=== PATIENT | female | born 1990 | race Caucasian/White ===

== ENCOUNTER 2017-10-02 20:58 | Emergency (ER) | payer SELFPAY ==
[~2017-10-02] VITALS: Ht 157.5 cm; Wt 100.5 kg
[~2017-10-02 20:58] MED LIST: NOHOMEMEDS
[2017-10-03] MEDS ORDERED: PROAIR HFA8.5 GM IH (01:13)
[2017-10-03] MEDS ORDERED: ROBITUSSIN AC,T10 ML PO (01:13)
[2017-10-03 02:02] VITALS: BP 129/98
== END 2017-10-03 02:36 | disposition home or self-care (01) ==
LOC: EME 20:58
DX: J11.1 Influenza due to unidentified influenza virus with other respiratory manifestations (principal); J45.909 Unspecified asthma, uncomplicated
CPT/HCPCS: 87502; 99281; 99284

== ENCOUNTER 2017-11-24 14:09 | Inpatient (IN) | payer OTHER ==
[~2017-11-24] VITALS: Ht 158.8 cm; Wt 103.6 kg
[~2017-11-24 14:09] MED LIST changes: +PROAIR HFA8.5 GM IH; +ROBITUSSIN AC,T10 ML PO
[2017-11-24 17:15] VITALS: BP 121/58
[2017-11-24] MEDS ORDERED: TYLENOL REGULA325 MG PO (19:14)
[2017-11-24] MEDS ORDERED: VALIUM5 MG PO (19:15)
[2017-11-24] MEDS ORDERED: KLONOPIN0.5 M1 PO (19:15)
[2017-11-24] MEDS ORDERED: BENADRYL25 MG PO (19:17)
[2017-11-24] MEDS ORDERED: COLACE100 MG PO (19:17)
[2017-11-24] MEDS ORDERED: LOVENOX40 MG/0.4 SC (19:18)
[2017-11-24] MEDS ORDERED: PEPCID20 MG PO (19:18)
[2017-11-24] MEDS ORDERED: LATUDA60 MG PO (19:19)
[2017-11-24] MEDS ORDERED: OXYCODONE HCL10 MG PO ×2 (19:21→19:22)
[2017-11-24] MEDS ORDERED: ROXICODONE5 MG PO (19:21)
[2017-11-24] MEDS ORDERED: MIRALAX17 GM PO (19:22)
[2017-11-25 00:19] VITALS: BP 135/59
[2017-11-25 05:15] VITALS: BP 117/56
[2017-11-25 07:24] LABS: HEMATOCRIT 34.8 % (36.0-46.0); HEMOGLOBIN 11.6 G/DL (11.9-15.5); MCH 29.7 PG (29.0-34.0); MCHC 33.3 G/DL (30.0-36.0); PLATELET COUNT 325 K/uL (156-360); RBC DIS.WIDTH-CV 12.2 % (11.8-14.6); RBC DIS.WIDTH-SD 39.5 % (39-53); RED BLOOD COUNT 3.91 M/uL (3.80-5.20); WHITE BLOOD COUNT 7.1 K/uL (4.1-10.2)
[2017-11-25 07:41] LABS: ALBUMIN 3.6 G/DL (3.2-4.8); ALKALINE PHOSPHATASE 79 IU/L (3-129); ALT (GPT) 65 IU/L (3-49); AST (GOT) 30 IU/L (2-34); CHLORIDE 103 MEQ/L (99-109); CREATININE 0.9 MG/DL (0.6-1.3); GFR ESTIMATE (CALCULATED) > 59 mL/min/; GLUCOSE 103 mg/dL (70-99); POTASSIUM 4.5 MEQ/L (3.7-5.4); SODIUM 135 MEQ/L (136-147); TOTAL BILIRUBIN 0.3 MG/DL (0.0-1.0); TOTAL PROTEIN 6.2 G/DL (6.4-8.3); UREA NITROGEN (BUN) 11 mg/dL (9-23)
[2017-11-25 07:42] VITALS: BP 109/66
[2017-11-25 15:32] VITALS: BP 124/60
[2017-11-26 06:09] VITALS: BP 136/82
[2017-11-26 07:34] LABS: HEMATOCRIT 33.3 % (36.0-46.0); HEMOGLOBIN 11.2 G/DL (11.9-15.5); MCHC 33.6 G/DL (30.0-36.0); MCV 89.3 FL (83-99); NRBC (%) 0.5 /100 WBC (0-0); PLATELET COUNT 331 K/uL (156-360); RBC DIS.WIDTH-CV 12.2 % (11.8-14.6); RBC DIS.WIDTH-SD 38.8 % (39-53); RED BLOOD COUNT 3.73 M/uL (3.80-5.20); WHITE BLOOD COUNT 6.2 K/uL (4.1-10.2)
[2017-11-26 07:56] LABS: CHLORIDE 107 MEQ/L (99-109); CREATININE 0.8 MG/DL (0.6-1.3); GFR ESTIMATE (CALCULATED) > 59 mL/min/; GLUCOSE 98 mg/dL (70-99); POTASSIUM 4.6 MEQ/L (3.7-5.4); SODIUM 137 MEQ/L (136-147); UREA NITROGEN (BUN) 10 mg/dL (9-23)
[2017-11-26 11:43] LABS: APPEARANCE SL.HAZY ((CLEAR)); BILIRUBIN NEGATIVE; BLOOD NEGATIVE; COLOR YELLOW ((YELLOW)); GLUCOSE (STRIP) NEGATIVE; KETONES NEGATIVE; LEUKOCYTES SMALL; NITRITE NEGATIVE; PROTEIN (STRIP) NEGATIVE; SPECIFIC GRAVITY 1.008 (1.000-1.030); UROBILINOGEN 0.2 MG/DL (0.2-1.0)
[2017-11-26 11:48] LABS: BACTERIA 1+ /HPF; EPITHELIAL CELLS 1+ /HPF; MUCUS TRACE /LPF; RED BLOOD CELLS 0-5 /HPF (0-5); WHITE BLOOD CELLS 15-20 /HPF (0-5)
[2017-11-27 05:40] VITALS: BP 112/58
[2017-11-27 15:22] VITALS: BP 110/56
[2017-11-28 05:54] VITALS: BP 114/59
[2017-11-28 15:35] VITALS: BP 146/80
[2017-11-29 05:52] VITALS: BP 118/77
[2017-11-29 15:09] VITALS: BP 119/84
[2017-11-30 05:38] VITALS: BP 100/50
[2017-11-30 15:08] VITALS: BP 130/71
[2017-12-01 05:58] VITALS: BP 106/56
[2017-12-01 06:56] VITALS: BP 88/50
[2017-12-01 16:20] LABS: BASOPHIL (%) 0.6 % (0-1); BASOPHIL COUNT 0.1 K/uL (0-0.1); EOSINOPHIL (%) 1.2 % (0-5); EOSINOPHIL COUNT 0.1 K/uL (0-0.3); HEMATOCRIT 32.4 % (36.0-46.0); HEMOGLOBIN 10.6 G/DL (11.9-15.5); IMMATURE GRANULOCYTE (%) 0.6 % (0.0-0.7); LYMPHOCYTE (%) 22.5 % (15-42); MCH 29.4 PG (29.0-34.0); MCHC 32.7 G/DL (30.0-36.0); MCV 89.8 FL (83-99); MONOCYTE (%) 6.8 % (3-12); MONOCYTE COUNT 0.6 K/uL (0-0.8); NEUTROPHIL (%) 68.3 % (45-76); NEUTROPHIL COUNT 6.1 K/uL (1.8-6.4); PLATELET COUNT 326 K/uL (156-360); RBC DIS.WIDTH-CV 12.4 % (11.8-14.6); RED BLOOD COUNT 3.61 M/uL (3.80-5.20)
[2017-12-01 16:32] VITALS: BP 120/55
[2017-12-02 05:52] VITALS: BP 136/60
[2017-12-02 11:15] LABS: ALBUMIN 3.8 G/DL (3.2-4.8); ALKALINE PHOSPHATASE 69 IU/L (3-129); ALT (GPT) 28 IU/L (3-49); AST (GOT) 16 IU/L (2-34); CHLORIDE 108 MEQ/L (99-109); CREATININE 0.8 MG/DL (0.6-1.3); GFR ESTIMATE (CALCULATED) > 59 mL/min/; GLUCOSE 132 mg/dL (70-99); POTASSIUM 4.5 MEQ/L (3.7-5.4); SODIUM 140 MEQ/L (136-147); TOTAL BILIRUBIN 0.2 MG/DL (0.0-1.0); UREA NITROGEN (BUN) 13 mg/dL (9-23)
[2017-12-02] MEDS ORDERED: TYLENOL REGULA325 MG PO (13:48)
[2017-12-02] MEDS ORDERED: ROXICODONE5 MG PO (13:48)
[2017-12-02] MEDS ORDERED: COLACE100 MG PO (13:48)
[2017-12-02] MEDS ORDERED: IBUPROFEN400 MG PO (13:48)
[2017-12-02] MEDS ORDERED: AMPHETAMINE SALT5 MG PO (14:08)
[2017-12-02] MEDS ORDERED: RISPERIDONE0.5 MG PO (14:08)
[2017-12-02] MEDS ORDERED: PRAZOSIN HCL1 MG PO (14:58)
== END 2017-12-02 15:33 | disposition home health service (06) | DRG 560 ==
LOC: 3WEST 14:09 → ENPENDDIS 12-02 → 3WEST 12-02 15:33
PROVIDERS: Hospitalist; Physical Medicine & Rehabilitation Pain Medicine; Psychiatry & Neurology Neurology
PROC: F07M0ZZ Range of Motion and Joint Mobility Treatment of Musculoskeletal System - Whole Body (ICD-10-PCS; principal; 2017-11-24)
DX: S32.011D Stable burst fracture of first lumbar vertebra, subsequent encounter for fracture with routine healing (principal); R26.9 Unspecified abnormalities of gait and mobility; E87.1 Hypo-osmolality and hyponatremia; I80.8 Phlebitis and thrombophlebitis of other sites; S34.101D Unspecified injury to L1 level of lumbar spinal cord, subsequent encounter; D72.829 Elevated white blood cell count, unspecified; R00.0 Tachycardia, unspecified; R30.0 Dysuria; J45.909 Unspecified asthma, uncomplicated; K21.9 Gastro-esophageal reflux disease without esophagitis; D64.9 Anemia, unspecified; F31.75 Bipolar disorder, in partial remission, most recent episode depressed; F43.10 Post-traumatic stress disorder, unspecified; F90.0 Attention-deficit hyperactivity disorder, predominantly inattentive type; M48.061 Spinal stenosis, lumbar region without neurogenic claudication; Z53.20 Procedure and treatment not carried out because of patient's decision for unspecified reasons; E66.9 Obesity, unspecified; Z68.41 Body mass index [BMI] 40.0-44.9, adult; V89.2XXD Person injured in unspecified motor-vehicle accident, traffic, subsequent encounter; Z87.891 Personal history of nicotine dependence; Z82.49 Family history of ischemic heart disease and other diseases of the circulatory system; Z83.3 Family history of diabetes mellitus
CPT/HCPCS: 71275; 72110; 72148; 80048; 80053; 81003; 85025; 85027; 87040; 87086; 93970; 93971; 94640; 97110 GO; 97530 GP; 99202; J0690; J1650